=== PATIENT | female | born 1980 | race Caucasian/White ===

== ENCOUNTER 2016-07-17 07:56 | Emergency (ER) | payer OTHER ==
[2016-07-17 08:10] VITALS: BP 134/81
--- NOTE | 2016-07-17 08:26 | UC ---
Bryce Varma Adam, scribed for DillonGorge garcia MD on 07/17/16 at 0805 . Skin Complaint HPI - HPI Summary HPI Summary: Pt is a 35 year old female presenting with swelling and purulent drainage from a piercing in her upper lip. The piercing became irritated over the weekend and began to swell up 2 days ago. The pain is a 3-4/10 in severity. Pt has had the piercing for 7 years and has never had any problems with it before this. She denies sore throat, fever, chills, redness, and swollen glands. Pt has a PMHx of melanoma removal but is otherwise healthy. FMHx of DM-II and colon cancer. Pt last saw her PCP Dr. Jane over the summer. - History of Current Complaint Time Seen by Provider: 07/17/16 08:00 Stated Complaint: SOFT TISSUE COMPLAINT Hx Obtained From: Patient Onset/Duration: Gradual Onset, Lasting Days, Still Present Timing: Constant Onset Severity: Moderate Current Severity: Moderate Location: Face - Upper lip Character: Swelling, Pain Aggravating: Nothing Alleviating: Nothing Associated Signs & Symptoms: Positive: Negative Related History: Foreign Body - Piercing in place for 7 years, no prior problems - Allergy/Home Medications Allergies/Adverse Reactions: Allergies Allergy/AdvReac Type Severity Reaction Status Date / Time Amoxicillin Allergy Hives Verified 07/17/16 08:13 Bacitracin Allergy Rash Verified 07/17/16 08:13 Latex Allergy RASH, Verified 07/17/16 08:13 ITCHING Penicillins Allergy Hives Verified 07/17/16 08:13 SULFA DRUGS Allergy ALLERGIC Uncoded 07/17/16 08:14 REACTION AN INFANT Review of Systems Constitutional: Negative Skin: Other - Swelling and purulent drainage from piercing in upper lip ENT: Negative All Other Systems Reviewed And Are Negative: Yes PMH/Surg Hx/FS Hx/Imm Hx - Surgical History Surgical History: Yes Surgery Procedure, Year, and Place: WISDON TEETH-2004 - Family History Known Family History: Positive: Diabetes, Other - Colon cancer - Social History Occupation: Employed Full-time Lives: Alone Alcohol Use: Weekly Alcohol Amount: 2-5 DRINKS PER WEEK Substance Use Type: None Smoking Status (MU): Never Smoked Tobacco Physical Exam Triage Information Reviewed: Yes Appearance: Well-Appearing, No Pain Distress, Well-Nourished Vital Signs: Initial Vital Signs Temp 97.3 F 07/17/16 08:04 Pulse 69 07/17/16 08:04 Resp 14 07/17/16 08:04 BP 134/81 07/17/16 08:04 Pulse Ox 99 07/17/16 08:04 Eyes: Positive: Conjunctiva Clear ENT: Positive: Hearing grossly normal, Pharynx normal, TMs normal. Negative: Muffled/hoarse voice Neck: Positive: Supple, No Lymphadenopathy Respiratory: Positive: Chest non-tender, Lungs clear, Normal breath sounds, No respiratory distress Cardiovascular: Positive: RRR, No Murmur Abdomen Description: Positive: Nontender, No Organomegaly, Soft Bowel Sounds: Positive: Present Musculoskeletal: Positive: Strength Intact, ROM Intact Neurological: Positive: Alert Psychological: Positive: Age Appropriate Behavior Skin: Positive: Other - MILD SWELLING OF THE UPPER LIP ON THE RIGHT SIDE. SURROUNDING THE 1/2 CM TOP OF PIN IS SOME MILD ERYTHEMA, TOTALING ABOUT 1 CM. NO ADENOPATHY, NO OBVIOUS LYMPHANGITIS OR ASCENDING CELLULITIS. Course/Dx - Course Course Of Treatment: Patient will be started on doxycycline. She has been advised to take out the pin. - Differential Diagnoses - Skin Complaint Differential Diagnoses: Other - Abscess vs cellulitis vs allergic reaction - Diagnoses Provider Diagnoses: Localized cellulitis of upper lip, secondary to foreign body piercing Discharge - Discharge Plan Condition: Stable Disposition: HOME Prescriptions: DOXYcycline CAP(*) [DOXYcycline 100MG CAP(*)] 100 mg PO BID #20 cap Patient Education Materials: Cellulitis (ED) Referrals: Jeff Jane MD [Primary Care Provider] - Additional Instructions: WE DISCUSSED: 1. You have a localized skin infection. Remove the pin. 2. Warm soaks to area for 10 minutes, 3-4 times a day. 3. Doxycycline, twice a day, for 10 days. 4. Recheck at any time for worsening of swelling, pain or redness. Call me in 2 or 4 days. I'll be here if you need more information. 5. Recheck for fever at any time. The documentation as recorded by the Bryce lopez Adam accurately reflects the service I personally performed and the decisions made by me, Gorge Newell MD.
== END 2016-07-17 08:26 | disposition home or self-care (01) ==
LOC: UCEAST 07:56
DX: K13.0 Diseases of lips (principal); Z88.0 Allergy status to penicillin; Z88.2 Allergy status to sulfonamides
CPT/HCPCS: 99212; G0463

== ENCOUNTER 2018-06-02 23:32 | Inpatient (IN) | payer OTHER ==
[2018-06-03] MEDS ORDERED: Lactated Ringers 1000 ML Bag* 1,000 ML IV ONE ×2 (00:22→02:01)
[2018-06-03] MEDS ORDERED: ceFAZolin 2 GM PREMIX in ORs 2 GM/50 ML BAG IVPB ONE (00:22)
--- NOTE | 2018-06-03 00:53 | HP ---
General Information - Reason for Visit Active labor - General Information Maternal Age: 37 Grav: 1 Para: 0 SAB: 0 IEA: 0 Estimated Due Date: 06/03/18 Determined By: LMP Maternal Blood Type and Rh: O Positive - Results this Serology/RPR Result: Non-Reactive Rubella Result: Immune HBsAg Result: Negative HIV Result: Negative GBS Culture Result: Positive - PCN allergy Past Medical History Delivery History: See Records - Primigravida Pertinent Past Medical History: See Records - skin cancer, migraines Pertinent Past Surgical History: See Records - wisdom tooth extraction , excision of melanoma Pertinent Family History: Non-Contributory - Antepartal Records Antepartal Records: Reviewed, Complicated by: - maternal age 37 Review of Systems Constitutional: Uncomfortable CV Complaint: No Respiratory: Shortness of Breath: No Gastrointestinal: No Nausea/Vomiting, Normal Bowel Movement Genitourinary: No Dysuria, No Bleeding, No Leaking Fluid Musculoskeletal: No Epigastric Pain, Contractions Neurological: No Headache, No Visual Changes Movement: Normal Exam Allergies/Adverse Reactions: Allergies MS Amoxicillin [Amoxicillin] Allergy (Verified 06/03/18 00:29) Hives MS Bacitracin [Bacitracin] Allergy (Verified 06/03/18 00:29) Rash MS Latex [Latex] Allergy (Verified 06/03/18 00:29) RASH, ITCHING MS Penicillins [Penicillins] Allergy (Verified 06/03/18 00:29) Hives SULFA DRUGS Allergy (Uncoded 06/03/18 00:29) ALLERGIC REACTION AN INFANT T-99.9, P-52, R-16, BP-151/90, O2-100% - Measurements Height: 5 ft 4 in Weight: 81.647 kg Body Mass Index (BMI): 30.9 Pre- Weight: 65.317 kg - Abdominal Exam Abdomen Exam: Non-Tender, Fundal Height Consistent with Dates - Ultrasound/Biophysical Profile Ultrasound Status: Not Done Targeted Exam Findings See L&D Outpatient Visit Provider Note for Findings: N/A Estimated Weight: 7.5 Cervical Exam: 4cm Effacement: 100% Station: -1 Presenting Part: Vertex Membrane Status: Intact Bleeding/Discharge: None EFM Findings - External Monitor Findings Baseline Heart Rate: 135 External Monitor Findings: Accelerations Present, No Pattern of Variable or Late Decelerations, Variability Moderate, Baseline Stable Contractions: Regular, Strong, 45-90 Seconds Contraction Frequency: 3 Assessment/Plan - Assessment 37 year old at 39 6/7 weeks gestation in active labor, intact membranes, GBS positive with PCN allergy (hives), with elevated BP. Gestational HTN vs. pain due to active labor vs. preeclampsia. - Obstetrical Risk Factors Obstetrical Risk Factors: GBS Positive Risk Factors Comment: GBS positive w/ PCN allergy, advanced maternal age, elevated BP - Plan Plan: Admit - Anticipate Vaginal Delivery - Date/Time of Admission Date of Admission: 06/03/18 Time of Admission: 00:21
[2018-06-03] MEDS ORDERED: Lactated Ringers 1000 ML Bag* 1,000 ML IV SCH ×3 (01:00→07:00)
[2018-06-03] MEDS ORDERED: OBEPIDURAL* 250 ML EPIDURAL ONE (01:07)
[2018-06-03 01:11] LABS: ABS Basophils 0 10^3/ul (0-0.2); ABS Eosinophils 0 10^3/ul (0-0.6); ABS Neutrophils 11.1 10^3/ul (1.5-7.7); ABS Nucleated RBC 0 10^3/ul; Eosinophil % 0.1 %; Hematocrit 40 % (35-47); Hemoglobin 13.7 g/dl (12.0-16.0); Lymphocyte % 14.3 %; Mean Corpuscular HGB Conc 34 g/dl (31-36); Mean Corpuscular Hemoglobin 30 pg (27-31); Mean Corpuscular Volume 88 fL (80-97); Nucleated Red Blood Cells % 0.1; Platelet Count 179 10^3/ul (150-450); Red Blood Count 4.53 10^6/ul (4.00-5.40); Red Cell Distribution Width 13 % (10.5-15); White Blood Count 14.2 10^3/ul (3.5-10.8)
[2018-06-03 01:22] LABS: Albumin 3.9 g/dL (3.2-5.2); Albumin/Globulin Ratio 1.3 (1-3); BUN/Creatinine Ratio 17.6 (8-20); Calcium 9.2 mg/dL (8.6-10.3); EGFR Non-African American 89.3 (>60); Globulin 3.1 g/dL (2-4); Potassium 3.8 mmol/L (3.5-5.0); Total Bilirubin 0.4 mg/dL (0.2-1.0); Uric Acid 5.7 mg/dL (2.3-6.6)
[2018-06-03] MEDS ORDERED: Sodium Citrate/Citric Acid* 15 ML UDC PO PRN (02:01)
[2018-06-03] MEDS ORDERED: Famotidine TAB* 20 MG PO PRN (02:01)
[2018-06-03] MEDS ORDERED: EPHEDrine (Pressors)* 50 MG/ML VIAL IV PUSH PRN ×2 (02:01)
[2018-06-03] MEDS ORDERED: Phenylephrine IV* 40 MCG/ML 10 ML SYRINGE IV PUSH PRN ×2 (02:01)
[2018-06-03] MEDS ORDERED: OBEPIDURAL* 250 ML EPIDURAL SCH (03:00)
[2018-06-03] MEDS ORDERED: Oxytocin in LR* 20 UNITS/1,000 ML BAG IVPB ONE (04:10)
[2018-06-03] MEDS ORDERED: Methylergonovine INJ* 0.2 MG/ML 1ML AMP ONE (05:28)
[2018-06-03] MEDS ORDERED: Acetaminophen TAB* 325 MG PO PRN (06:18)
[2018-06-03] MEDS ORDERED: Witch Hazel PAD* JAR TOPICAL PRN (06:18)
[2018-06-03] MEDS ORDERED: Misoprostol TAB* 200 MCG PR ONE (06:18)
[2018-06-03] MEDS ORDERED: Dibucaine 1% 28.35 GM TUBE PR PRN (06:18)
[2018-06-03] MEDS ORDERED: Glycerin ADULT SUPP PR PRN (06:18)
--- NOTE | 2018-06-03 06:40 | PROCNOTE ---
[facility] OB: Delivery Note - Delivery A Date of : 06/03/18 Time of : 05:19 [place] Sex: Male Weight at : 3.236 kg Score 1 Minute: 8 Score 5 Minutes: 9 Gestational Age in Weeks and Days at Delivery: 40 Weeks and 0 Days Delivery Method: Spontaneous Vaginal Labor: Spontaneous Did Patient attempt ?: N/A, No Previous Amniotic Fluid: Clear Estimated Blood Loss: 400 Anesthesia/Analgesia: CEI for Labor Delivered By: Nancy Whitmore - Nursery Level of Nursery: Regular/Bedside - Perineum Perineal Injury: 2nd Degree Perineal Repair: By Delivering Practioner - Events Delivery Events of Note: Pitocin Only After Delivery, Supplemental O2 to Mother , Full Course of Antibiotics - Additional Delivery Notes Additional Delivery Notes: Pt admitted to Labor and Delivery in active labor. Pt progressed steadily. IV access was established and Cefazolin initiated for GBS prophylaxis, after discussing with pt potential for cross reactivity due to PCN allergy. As PCN allergy was just hives and the alternative abx would be Vancomycin, decision made after consulting pharmacy to use Cefazolin. Pt soon became more uncomfortable and requested and received an epidural with good relief. Pt rested after receiving epidural then began to experience increased pressure. Pt found to be complete. FHR with frequent variable decels with good return to baseline. Position changes attempted with little effect. IVF bolus and O2 administered as well. Pt pushed with good effort and steady descent. Pt delivered head, OP to LOT, with nuchal cord x1. Shoulders soon followed and nuchal cord reduced. Infant placed on maternal abdomen, dried and stimulated, with vigorous cry, good tone, and HR>100. Cord clamped x2 after pulsation ceased , then cut by 's father. Placenta soon delivered with gentle cord traction , spontaneous and luisa. Initial bleeding brisk, despite initiation of Pitocin via IV after delivery of placenta. Cytotec administered, clots expressed and fundal massage performed. Bleeding then stopped. Perineal exam revealed second degree laceration, repaired with Rapide 3-0 suture with good hemostasis and tissue approximation. and mother stable at this time, anticipate normal course.
[2018-06-03] MEDS ORDERED: Oxytocin in LR* 20 UNITS/1,000 ML BAG IVPB SCH (07:00)
[2018-06-03] MEDS: Ibuprofen TAB* 600 MG PO PRN ×3 (07:20→20:27)
[2018-06-03] MEDS ORDERED: ceFAZolin 1 GM VIAL(*) 1 GM in NS 0.9% 50 ML* 50 ML IVPB SCH (09:00)
[2018-06-03] MEDS: Docusate CAP* 100 MG PO SCH ×2 (14:13→20:28)
[2018-06-04 06:55] LABS: ABS Basophils 0 10^3/ul (0-0.2); ABS Eosinophils 0 10^3/ul (0-0.6); ABS Lymphocytes 2.1 10^3/ul (1.0-4.8); ABS Monocytes 0.9 10^3/ul (0-0.8); ABS Neutrophils 8.5 10^3/ul (1.5-7.7); ABS Nucleated RBC 0 10^3/ul; Eosinophil % 0.1 %; Hematocrit 25 % (35-47); Hemoglobin 8.8 g/dl (12.0-16.0); Lymphocyte % 17.9 %; Mean Corpuscular HGB Conc 35 g/dl (31-36); Mean Corpuscular Hemoglobin 31 pg (27-31); Mean Corpuscular Volume 88 fL (80-97); Mean Platelet Volume 8.3 fL (7.4-10.4); Nucleated Red Blood Cells % 0; Platelet Count 132 10^3/ul (150-450); Red Blood Count 2.82 10^6/ul (4.00-5.40); Red Cell Distribution Width 13 % (10.5-15); White Blood Count 11.5 10^3/ul (3.5-10.8)
[2018-06-04 07:07] LABS: Albumin 2.7 g/dL (3.2-5.2); Albumin/Globulin Ratio 1.2 (1-3); BUN/Creatinine Ratio 12.5 (8-20); Calcium 8.1 mg/dL (8.6-10.3); EGFR Non-African American 105.6 (>60); Globulin 2.3 g/dL (2-4); Total Bilirubin 0.3 mg/dL (0.2-1.0)
[2018-06-04] MEDS: Ibuprofen TAB* 600 MG PO PRN ×3 (07:44→20:40)
[2018-06-04] MEDS: Docusate CAP* 100 MG PO SCH ×3 (07:45→20:40)
[2018-06-04] MEDS: Ferrous Gluconate TAB* 324 MG TAB PO SCH ×2 (07:45→20:40)
[2018-06-05] MEDS: Ibuprofen TAB* 600 MG PO PRN ×2 (03:03→09:56)
[2018-06-05 08:05] VITALS: BP 127/80
[2018-06-05] MEDS: Ferrous Gluconate TAB* 324 MG TAB PO SCH (09:55)
[2018-06-05] MEDS: Docusate CAP* 100 MG PO SCH (09:56)
--- NOTE | 2018-06-05 12:51 | PTEDU ---
Patient Name: HANNA CATHERINE HANNA CATHERINE selected video: Follow Me Mum: The [facility] to Successful to view on 06/05/20 18 at 12:51:12 PM [id number]
== END 2018-06-05 12:01 | disposition home or self-care (01) | DRG 807 ==
LOC: MCHOBOUT 23:32 → MCHOB 06-03 00:24
PROVIDERS: ADMIT Midwife; ATTEND Advanced Practice Midwife
PROC: 0KQM0ZZ Repair Perineum Muscle, Open Approach (ICD-10-PCS; principal; 2018-06-03)
PROC: 10E0XZZ Delivery of Products of Conception, External Approach (ICD-10-PCS; 2018-06-03)
PROC: 4A1HXCZ Monitoring of Products of Conception, Cardiac Rate, External Approach (ICD-10-PCS; 2018-06-03)
DX: O69.81X0 Labor and delivery complicated by cord around neck, without compression, not applicable or unspecified (principal); O99.824 Streptococcus B carrier state complicating childbirth; O13.4 Gestational [pregnancy-induced] hypertension without significant proteinuria, complicating childbirth; O14.94 Unspecified pre-eclampsia, complicating childbirth; Z88.0 Allergy status to penicillin; Z37.0 Single live birth; Z3A.40 40 weeks gestation of pregnancy; Z88.2 Allergy status to sulfonamides; Z88.1 Allergy status to other antibiotic agents; Z91.040 Latex allergy status; O70.1 Second degree perineal laceration during delivery; O90.81 Anemia of the puerperium; O76 Abnormality in fetal heart rate and rhythm complicating labor and delivery
CPT/HCPCS: 36415; 80053; 84550; 85025; 86850; 86900; 86901; A9270-GY; J0690; J2210

== ENCOUNTER 2021-01-27 12:39 | Inpatient (IN) ==
[2021-01-27] MEDS ORDERED: Buffered Lidocaine 1% SYRIN 1 ml INTRADERM ONE (13:05)
[2021-01-27] MEDS ORDERED: Lactated Ringers 1000 ml BAG 1,000 ML IV ONE ×2 (13:05→15:25)
[2021-01-27] MEDS ORDERED: Lactated Ringers 1000 ml BAG 1,000 ML IV SCH ×3 (14:00→17:00)
[2021-01-27 14:04] LABS: ABS Lymphocytes 1.5 10^3/ul (1.0-4.8); ABS Monocytes 0.8 10^3/ul (0-0.8); ABS Neutrophils 15.6 10^3/ul (1.5-7.7); Eosinophil % 0.1 %; Hematocrit 38 % (35-47); Hemoglobin 12.9 g/dL (12.0-16.0); Lymphocyte % 8.5 %; Mean Corpuscular HGB Conc 34 g/dL (31-36); Mean Corpuscular Hemoglobin 30 pg (27-31); Mean Corpuscular Volume 87 fL (80-97); Platelet Count 199 10^3/uL (150-450); Red Blood Count 4.35 10^6 /uL (3.70-4.87); Red Cell Distribution Width 13 % (10-15)
[2021-01-27] MEDS ORDERED: OBEPIDURAL 250 ML EPIDURAL ONE (14:14)
[2021-01-27 14:22] LABS: Albumin 3.7 g/dL (3.2-5.2); Albumin/Globulin Ratio 1.1 (1-3); Calcium 8.9 mg/dL (8.6-10.3); EGFR African American 121.3 (>60); EGFR Non-African American 100.2 (>60); Globulin 3.3 g/dL (2-4); Potassium 3.8 mmol/L (3.5-5.0); Total Bilirubin 0.4 mg/dL (0.2-1.0); Uric Acid 5.5 mg/dL (2.3-6.6)
[2021-01-27 14:25] LABS: Urine Benzodiazepine Screen None Detected (None Detect); Urine Cannabinoids Screen None Detected (None Detect); Urine Opiates Screen None Detected (None Detect)
[2021-01-27] MEDS ORDERED: Phenylephrine 40 mcg/mL 10mL (400mcg) SYRINGE IV PUSH PRN ×2 (15:25)
[2021-01-27] MEDS ORDERED: Sodium Citrate/Citric Acid LIQ 15 ML UDC PO PRN (15:25)
[2021-01-27] MEDS ORDERED: EPHEDrine (Pressors) 50 MG/ML VIAL IV PUSH PRN ×2 (15:25)
[2021-01-27] MEDS ORDERED: OBEPIDURAL 250 ML EPIDURAL SCH (16:00)
[2021-01-27 16:16] LABS: Urine Appearance Turbid; Urine Bilirubin Negative (Negative); Urine Blood 2+ (Negative); Urine Color Yellow; Urine Glucose Negative (Negative); Urine Ketones 1+ (Negative); Urine Nitrite Negative (Negative); Urine Protein 1+(30 mg/dL) (Negative); Urine Specific Gravity 1.018 (1.002-1.030); Urine Urobilinogen Negative (Negative)
[2021-01-27 16:22] LABS: Urine Bacteria Absent (Absent); Urine Red Blood Cell 3+(>10/hpf) (Absent); Urine Squamous Epithelial Cell Present (Absent); Urine Transitional Epithelial Present (Absent); Urine White Blood Cell Trace(0-5/hpf) (Absent)
[2021-01-27] MEDS ORDERED: Oxytocin in LR 20 UNITS/1,000 ML BAG IVPB ONE (16:34)
[2021-01-27] MEDS ORDERED: Witch Hazel PAD JAR TOPICAL PRN (16:55)
[2021-01-27] MEDS ORDERED: Dibucaine 1% OINT 28.35 GM TUBE PR PRN (16:55)
[2021-01-27] MEDS ORDERED: Oxytocin in LR 20 UNITS/1,000 ML BAG IVPB SCH (17:00)
[2021-01-28 10:18] LABS: ABS Lymphocytes 2.2 10^3/ul (1.0-4.8); ABS Monocytes 0.5 10^3/ul (0-0.8); ABS Neutrophils 11.1 10^3/ul (1.5-7.7); Eosinophil % 0.1 %; Hematocrit 29 % (35-47); Hemoglobin 10.1 g/dL (12.0-16.0); Lymphocyte % 15.6 %; Mean Corpuscular HGB Conc 35 g/dL (31-36); Mean Corpuscular Hemoglobin 31 pg (27-31); Mean Corpuscular Volume 89 fL (80-97); Mean Platelet Volume 7.9 fL (7.4-10.4); Platelet Count 183 10^3/uL (150-450); Red Blood Count 3.31 10^6 /uL (3.70-4.87); Red Cell Distribution Width 13 % (10-15); White Blood Count 13.8 10^3/uL (3.5-10.8)
[2021-01-29 07:31] VITALS: BP 109/63
== END 2021-01-29 13:10 | disposition home or self-care (01) | DRG 807 ==
LOC: MCHOBOUT 12:39 → MCHOB 13:08
PROVIDERS: ADMIT Midwife; ATTEND Midwife